=== PATIENT | male | born 1955 | race Caucasian/White ===

== ENCOUNTER 2019-06-02 10:41 | Emergency (ER) | payer OTHER ==
[~2019-06-02] VITALS: Ht 180.3 cm; Wt 91.8 kg
[2019-06-02 11:34] LABS: ALBUMIN 4.1 g/dL (3.4-4.8)
[2019-06-02 11:35] LABS: HEMATOCRIT 45.3 % (42.0-52.0); HEMOGLOBIN 15.6 g/dL (13.5-18.0); MEAN CELL VOLUME 85 fl (78-100); MEAN CORPUSCULAR HEMOGLOBIN 29 pg (27-31); MEAN CORPUSCULAR HGB CONC 34 g/dL (33-37); MEAN PLATELET VOLUME 9.6 fl (7.4-10.4); PLATELET COUNT 239 K/mm3 (130-400); POTASSIUM 4.6 mmol/L (3.5-5.1); RED BLOOD COUNT 5.32 M/mm3 (4.20-5.60); RED CELL DISTRIBUTION WIDTH 13.2 % (11.5-14.5); WHITE BLOOD COUNT 6.1 K/mm3 (4.8-10.8)
[2019-06-02] MEDS ORDERED: SYMBICORT1 AE3 IH (11:35)
[2019-06-02 11:36] LABS: CALCIUM 8.6 mg/dL (8.3-10.5)
[2019-06-02] MEDS ORDERED: COREG 25MG25 MG/TAB PO (11:36)
[2019-06-02] MEDS ORDERED: EFFIENT10 M1 PO (11:36)
[2019-06-02 11:37] LABS: TOTAL PROTEIN 7.4 g/dL (6.2-8.1)
[2019-06-02] MEDS ORDERED: ZESTRIL40 M1 PO (11:37)
[2019-06-02] MEDS ORDERED: MELOXICAM15 MG PO (11:38)
[2019-06-02] MEDS ORDERED: ALDACTONE 25MG25 MG PO (11:38)
[2019-06-02] MEDS ORDERED: OMEPRAZOLE40 MG PO (11:39)
[2019-06-02] MEDS ORDERED: PROVENTIL0.09 MG/A1 IH (11:40)
[2019-06-02] MEDS ORDERED: ALBUTEROL2.5 MG/3 M IH (11:41)
[2019-06-02] MEDS ORDERED: SPIRIVA RE2.5 MCG/Ac IH (11:41)
[2019-06-02] MEDS ORDERED: COLACE100 M1 PO (11:42)
[2019-06-02] MEDS ORDERED: METFORMIN HYD1000 MG PO (11:42)
[2019-06-02] MEDS ORDERED: MIRALAX17 GM PO (11:43)
[2019-06-02] MEDS ORDERED: NEIGHBOR PH PO (11:43)
[2019-06-02] MEDS ORDERED: NITROSTAT0.4 M1 SL (11:44)
[2019-06-02] MEDS ORDERED: LEVEMIR FLEX100 U/ML SQ (11:44)
[2019-06-02] MEDS ORDERED: DICLOFENAC SOD100 GM TOP (11:46)
[2019-06-02] MEDS ORDERED: RITE AID GLUCOSE4 G1 PO (11:47)
[2019-06-02 11:52] LABS: TOTAL BILIRUBIN 0.1 mg/dL (0.2-1.2)
[2019-06-02 12:08] LABS: BAND 1 % (0-10); LYMPHOCYTE 14 % (20-51); MONOCYTE 9 % (3-10); NEUTROPHILS 74 % (42-75)
[2019-06-02] MEDS ORDERED: HYDROCODONE AN473 M1 PO (14:45)
[2019-06-02] MEDS ORDERED: IPRATROPIUM BROM3 M1 IH (14:45)
[2019-06-02 14:51] VITALS: BP 192/106
== END 2019-06-02 15:06 | disposition home or self-care (01) ==
LOC: ED 10:41
PROVIDERS: Nurse Practitioner Primary Care
DX: J10.1 Influenza due to other identified influenza virus with other respiratory manifestations (principal); E86.0 Dehydration; I25.10 Atherosclerotic heart disease of native coronary artery without angina pectoris; E11.9 Type 2 diabetes mellitus without complications; I10 Essential (primary) hypertension; J44.9 Chronic obstructive pulmonary disease, unspecified; K21.9 Gastro-esophageal reflux disease without esophagitis; F17.210 Nicotine dependence, cigarettes, uncomplicated; Z79.4 Long term (current) use of insulin; Z95.5 Presence of coronary angioplasty implant and graft
CPT/HCPCS: J1885; J7030